=== PATIENT | female | born 1965 | race Caucasian/White ===

== ENCOUNTER → 2017-01-10 17:04 | Outpatient (CLI) | payer OTHER ==
[2015-08-21 07:18] VITALS: BMI 38.3
[~2017-01-10 17:04] MED LIST: GLUCOPHAGE1000 MG PO; LANTUS SOL100 UNIT/1; LISINOPRIL2.5 MG PO
== END | disposition home or self-care (01) ==
LOC: D.MAMMO 09:15
DX: Z12.31 Encounter for screening mammogram for malignant neoplasm of breast (principal)

== ENCOUNTER 2017-07-22 18:45 | Emergency (ER) | payer OTHER ==
[2015-08-21 07:18] VITALS: BMI 38.3
== END 2017-07-22 23:51 | disposition home or self-care (01) ==
LOC: D.ER 18:45
DX: M79.661 Pain in right lower leg (principal); Z86.718 Personal history of other venous thrombosis and embolism; I80.3 Phlebitis and thrombophlebitis of lower extremities, unspecified; I87.2 Venous insufficiency (chronic) (peripheral); E11.9 Type 2 diabetes mellitus without complications; Z79.4 Long term (current) use of insulin

== ENCOUNTER 2018-09-17 18:22 | Emergency (ER) | payer OTHER ==
[~2018-09-17] VITALS: Ht 165.1 cm; Wt 115.5 kg
[2018-09-17 18:32] VITALS: Ht 165.1 cm; Wt 115.5 kg
[2018-09-17] MEDS ORDERED: NORVASC2.5 MG PO (18:35)
[2018-09-17] MEDS ORDERED: ZOFRAN4 MG PO (20:22)
[2018-09-17] MEDS ORDERED: TORADOL10 MG PO (20:22)
[2018-09-17 20:50] VITALS: BP 130/74
== END 2018-09-17 20:52 | disposition home or self-care (01) ==
LOC: D.ER 18:22
DX: E11.649 Type 2 diabetes mellitus with hypoglycemia without coma (principal); Z79.4 Long term (current) use of insulin; S32.038A Other fracture of third lumbar vertebra, initial encounter for closed fracture; V49.9XXA Car occupant (driver) (passenger) injured in unspecified traffic accident, initial encounter; Y93.89 Activity, other specified; Y92.410 Unspecified street and highway as the place of occurrence of the external cause; M54.2 Cervicalgia; I10 Essential (primary) hypertension

== ENCOUNTER → 2018-09-24 13:22 | Outpatient (CLI) | payer OTHER ==
[2018-09-17 18:32] VITALS: BMI 42.3
[~2018-09-24 13:22] MED LIST changes: +NORVASC2.5 MG PO; +TORADOL10 MG PO; +ZOFRAN4 MG PO
== END | disposition home or self-care (01) ==
LOC: D.CT 13:22
DX: R41.3 Other amnesia (principal)

== ENCOUNTER → 2019-01-04 10:26 | Outpatient (CLI) | payer OTHER ==
[2018-09-17 18:32] VITALS: BMI 42.3
== END | disposition home or self-care (01) ==
LOC: D.US 12-24 09:00
DX: I87.8 Other specified disorders of veins (principal); R59.0 Localized enlarged lymph nodes

== ENCOUNTER 2019-02-10 06:33 | Day surgery (SDC) | payer OTHER ==
[~2019-02-10] VITALS: Ht 170.2 cm; Wt 106.6 kg
[~2019-02-10 06:33] MED LIST changes: +CLARITIN 10 MG10 MG PO; +FUROSEMIDE20 MG PO; +K-DUR20 MEQ PO
[2019-02-10 07:20] LABS: CALC OSMOLALITY 284 mosm/kg (275-300); CARBON DIOXIDE 32.5 mmol/L (21.0-32.0); CHLORIDE - SERUM 102 mmol/L (98-107); CREATININE - SERUM 0.8 mg/dL (0.6-1.3); POTASSIUM - SERUM 3.6 mmol/L (3.5-5.1); SODIUM 141 mmol/L (136-145); UREA NITROGEN 15 mg/dL (7-18); eGFR NON AFRICAN AMERICAN 79 mL/min (90-120)
[2019-02-10 07:22] LABS: GLUCOSE 151 mg/dL (74-106)
[2019-02-10 07:51] VITALS: BP 127/80; Ht 170.2 cm; Wt 106.6 kg
[2019-02-10 08:06] LABS: HCG URINE NEGATIVE (NEGATIVE)
[2019-02-10 08:13] LABS: HEMATOCRIT 40.7 % (36.0-48.0); HEMOGLOBIN 13.1 g/dL (12-16); MCH 28.5 pg (26.0-34.0); MCHC 32.2 g/dL (31.0-37.0); MCV 88.5 fL (80.0-100.0); MEAN PLATELET VOLUME 9.6 fL (7.4-10.4); RBC 4.6 10x6/uL (4.00-5.40); RDW 14.4 % (11.5-14.5); WBC 7.3 10x3/uL (4.8-10.8)
--- NOTE | 2019-03-24 17:10 | OP ---
PATIENT NAME: LAURENT BHANDARI MEDICAL RECORD: [id number] :65 LOCATION:D.OPS ADMISSION DATE: SURGEON: RANGEL HARRINGTON MD DATE OF OPERATION: 02/10/2019 PREOPERATIVE DIAGNOSES: 1. Venous stasis disease. 2. Pathologic greater saphenous venous reflux, right. 3. Enlarged right groin lymph nodes. 4. Symptomatic varicose veins, right lower extremity. POSTOPERATIVE DIAGNOSES: 1. Venous stasis disease. 2. Pathologic greater saphenous venous reflux, right. 3. Enlarged right groin lymph nodes. 4. Symptomatic varicose veins, right lower extremity. PROCEDURES: 1. Right groin lymph node biopsies. 2. Avulsion phlebectomy, right lower extremity times 42. 3. Ligation and division of greater saphenous vein. SURGEON: Rangel Harrington MD SENIOR OCCUPATIONAL THERAPIST: None. BLOOD LOSS: Please see the anesthesia sheet. COMPLICATIONS: None. The risks, possible complications, and alternatives to the procedure were explained to the patient. She elects to proceed. My initial plan was to perform a VNUS radiofrequency ablation of right greater saphenous vein. However, the right greater saphenous vein was discontinuous, and for this reason, the VNUS procedure was not performed. OPERATIVE COURSE: The patient was conveyed to the operating room electively on 02/10/2019. General anesthesia was induced by the anesthesia staff. The patient was positioned supine and then in the reverse Trendelenburg position. Under ultrasonographic guidance, I percutaneously accessed the right greater saphenous vein at the ankle. A guidewire passed short distance with difficulty. Under ultrasound, I could see that the greater saphenous vein was discontinuous. I elected to ligate and divide the greater saphenous vein at its origin in the fossa ovalis as it comes off the common femoral vein. I did this because I was going to have to make an incision here anyhow in order to excise 2 pathologically enlarged lymph nodes. Incision was accomplished in the inguinal crease on the right. Sharp dissection was carried down to level of lymph elizabeth tissue, which was then excised with the Harmonic scalpel. There was very little bleeding. The lymph nodes were sent as fresh specimens to the pathologist. Meticulous hemostasis was achieved with the Harmonic scalpel as well as with the electrocautery. OPERATIVE REPORT [id number] LAURENT BHANDARI I then dissected down to the junction of the greater saphenous vein and the common femoral vein. The greater saphenous vein was ligated doubly and divided between ligatures. This should prevent refluxing element in the greater saphenous vein. The skin incision was closed with interrupted intracuticular 3-0 Vicryls and then a running 3-0 Vicryl suture. The varicose veins had been marked preoperatively in the holding area in the presence of a female nurse. The varicose veins on the anterior portion of the right lower extremity were removed utilizing the avulsion phlebectomy technique. Small skin incisions were accomplished. A phlebectomy hook was advanced. I performed avulsion phlebectomies. At no time was there any apparent nervous injury during this procedure. The patient was then positioned prone. The posterior aspect of the right lower extremity was sterilely prepped and draped. Again, avulsion phlebectomies were performed in similar fashion as they were on the front. Small stab incisions were made and then the phlebectomy hook was inserted and avulsion phlebectomies were performed. The patient was then positioned supine again. Sterile dressings were applied including a Coban wrap. The patient was then extubated and conveyed to post-anesthesia care unit, where she was in stable condition. I will plan to remove the Coban wrap in my office in 2-3 days. TRANSINT:[id number] Voice Confirmation ID: [id number] DOCUMENT ID: [id number] RANGEL HARRINGTON MD at 1710 CC: ROSEANNA ACOSTA [id number] DICTATION DATE: 03/18/191714 CURRENCY MACHINE OPERATOR: 03/18/191938 [facility] 02/10/19 [id number] [place] [address]
== END 2019-02-10 17:30 | disposition home or self-care (01) ==
LOC: D.OPS 06:33 → D.PAN 10:30 → D.OPS 17:30
PROVIDERS: Anesthesiology; ATTEND Surgery
DX: I87.8 Other specified disorders of veins (principal); I87.2 Venous insufficiency (chronic) (peripheral); R59.0 Localized enlarged lymph nodes; I83.811 Varicose veins of right lower extremity with pain; D36.0 Benign neoplasm of lymph nodes; Z01.812 Encounter for preprocedural laboratory examination

== ENCOUNTER 2019-02-19 19:00 | Outpatient (CLI) | payer OTHER ==
[2019-02-10 07:51] VITALS: BMI 36.9
== END 2019-02-19 23:59 | disposition home or self-care (01) ==
LOC: D.MAMMO 19:00
PROVIDERS: ATTEND Family Medicine
DX: Z12.31 Encounter for screening mammogram for malignant neoplasm of breast (principal)

== ENCOUNTER → 2019-03-08 15:29 | Outpatient (CLI) | payer OTHER | END | disposition home or self-care (01) | LOC: D.CT 15:29 | DX: R59.1 Generalized enlarged lymph nodes (principal) ==

== ENCOUNTER 2019-07-19 10:25 | Day surgery (SDC) | payer OTHER ==
[2019-07-16 13:54] LABS: ANION GAP 12.8 mmol/L (8-16); CALCIUM 8.8 mg/dL (8.5-10.1); CREATININE - SERUM 0.9 mg/dL (0.6-1.3); POTASSIUM - SERUM 3.8 mmol/L (3.5-5.1)
[2019-07-16 13:59] LABS: HEMATOCRIT 36.3 % (36.0-48.0); HEMOGLOBIN 11.8 g/dL (12-16); MCHC 32.5 g/dL (31.0-37.0); MCV 86.2 fL (80.0-100.0); MEAN PLATELET VOLUME 9.1 fL (7.4-10.4); RBC 4.21 10x6/uL (4.00-5.40); RDW 14.4 % (11.5-14.5)
[~2019-07-19] VITALS: Ht 170.2 cm; Wt 106.1 kg
[2019-07-19 11:17] VITALS: BP 124/53; Ht 170.2 cm; Wt 106.1 kg
[2019-07-19] MEDS ORDERED: HYDROCODON-ACE1 EA10 PO (12:34)
--- NOTE | 2019-07-22 12:03 | OP ---
PATIENT NAME: LAURENT BHANDARI MEDICAL RECORD: [id number] :65 LOCATION:D.OPS ADMISSION DATE: SURGEON: WINTER RUSHING MD DATE OF OPERATION: 07/19/2019 PREOPERATIVE DIAGNOSIS: Carpal tunnel syndrome of the left wrist. POSTOPERATIVE DIAGNOSIS: Carpal tunnel syndrome of the left wrist. PROCEDURE: Left carpal tunnel release. SURGEON: Winter Rushing MD ANESTHESIA: General. INTRAOPERATIVE COMPLICATIONS: None. SUMMARY OF PATHOLOGIC FINDINGS: The patient was indeed found to have a very tight transverse carpal ligament consistent with preoperative diagnosis. OPERATIVE SUMMARY IN DETAIL: After obtaining the appropriate preoperative orthopedic surgery consent as well as anesthetic consultation, evaluation and clearance, the patient was brought to the operating room and placed on the operating table in supine position. After adequate general laryngeal mask airway was administered, tourniquet was placed about the proximal aspect of the left upper extremity. Left upper extremity was then prepped and draped in routine sterile fashion. The arm was elevated and exsanguinated, tourniquet was inflated to 250 mmHg. An incision was made in the midline of the fourth metacarpal ray, taken down the level of the distal aspect of the transverse carpal ligament. This slight incision then led to identification of the median nerve. The freer elevator was then placed over the median nerve for protection throughout the remainder of the case. At this point, the mobiDEOS safety light was then utilized to release the transverse carpal ligament in its entirety to the proximal wrist crease all done under direct visualization. Having completed this, the wound was irrigated and closed and was locally infiltrated with 0.25% Marcaine plain. Sterile dressings were applied. The patient was awakened and taken to the recovery room in stable condition. All final needle and sponge counts were correct. TRANSINT:[id number] Voice Confirmation ID: [id number] DOCUMENT ID: [id number] WINTER RUSHING MD at 1203 CC: [id number] DICTATION DATE: 07/22/19 1106 BAND SAWMILL OPERATOR: 07/22/19 1145 [facility] 07/19/19 [place] [address]
== END 2019-07-19 14:30 | disposition home or self-care (01) ==
LOC: D.OPS 10:25 → D.PAN 14:30 → D.OPS 14:50
PROVIDERS: Anesthesiology; ATTEND Orthopaedic Surgery
DX: G56.02 Carpal tunnel syndrome, left upper limb (principal)

== ENCOUNTER 2020-05-25 08:27 | Day surgery (SDC) | payer OTHER ==
[2020-05-23 15:18] LABS: HEMATOCRIT 39.2 % (36.0-48.0); HEMOGLOBIN 12.5 g/dL (12-16); MCH 28.5 pg (26.0-34.0); MCHC 31.9 g/dL (31.0-37.0); MCV 89.5 fL (80.0-100.0); MEAN PLATELET VOLUME 8.7 fL (7.4-10.4); RBC 4.38 10x6/uL (4.00-5.40); RDW 13.7 % (11.5-14.5); WBC 6.5 10x3/uL (4.8-10.8)
[2020-05-23 15:30] LABS: CALC OSMOLALITY 282 mosm/kg (275-300); CALCIUM 8.5 mg/dL (8.5-10.1); CARBON DIOXIDE 29.7 mmol/L (21.0-32.0); CHLORIDE - SERUM 105 mmol/L (98-107); CREATININE - SERUM 0.7 mg/dL (0.6-1.3); POTASSIUM - SERUM 3.9 mmol/L (3.5-5.1); SODIUM 141 mmol/L (136-145); UREA NITROGEN 15 mg/dL (7-18); eGFR NON AFRICAN AMERICAN > 90 mL/min (90-120)
[2020-05-23 15:32] LABS: GLUCOSE 124 mg/dL (74-106)
[~2020-05-25] VITALS: Ht 170.2 cm; Wt 94.8 kg
--- NOTE | ~2020-05-25 | OP ---
PATIENT NAME: LAURENT BHANDARI MEDICAL RECORD: [id number] :65 LOCATION:D.OPS ADMISSION DATE: SURGEON: WINTER RUSHING MD DATE OF OPERATION: 05/25/2020 PREOPERATIVE DIAGNOSIS: Trigger thumb, left thumb. POSTOPERATIVE DIAGNOSIS: Trigger thumb, left thumb. PROCEDURE: A1 jb release of the trigger thumb. SURGEON: Winter Rushing MD ANESTHESIA: General. INTRAOPERATIVE COMPLICATIONS: None. SUMMARY OF PATHOLOGIC FINDINGS: The patient had a very tight A1 jb and had caused substantial excoriation of the flexor tendons to the thumb, but were not; however, torn entirely. OPERATIVE SUMMARY IN DETAIL: After obtaining the appropriate preoperative orthopedic cultures consent as well as anesthetic consultation, evaluation and clearance, the patient was brought to the operating room and placed on the operating table in supine position. After adequate general laryngeal mask airway was administered, tourniquet was placed on the proximal aspect of left upper extremity. Left upper extremity was prepped and draped in routine sterile fashion. The arm was elevated and exsanguinated. Tourniquet was inflated to 250 mmHg. At this point, the appropriate timeout was taken and agreed upon by all given the patient's unique identifiers. An incision was made at the base of thumb crease. This was taken directly down while holding the digital nerves protected. The A1 jb was identified in its entirety and incised in its entirety. The tendon was inspected. Findings as noted above. Having completed this, the wound was irrigated and closed with 4-0 Prolene in vertical mattress fashion. The area was then locally infiltrated with 0.25% Marcaine and lidocaine mixture. Sterile dressings were applied. Tourniquet was deflated. The patient was awakened and taken to the recovery room in stable condition. All final needle and sponge counts were correct. TRANSINT:[id number] Voice Confirmation ID: [id number] DOCUMENT ID: [id number] WINTER RUSHING MD CC: [id number] DICTATION DATE: 05/25/20 112 ABRADING MACHINE TENDER: 05/25/20 1606 [facility] 05/25/20 [facility] [address] [place] [address]
[~2020-05-25 08:27] MED LIST changes: -GLUCOPHAGE1000 MG PO; +GLUCOPHAGE500 MG PO; +HYDROCODON-ACE1 EA10 PO; +LANTUS INS100 UNITS/ SC; +TRULICITY1.5 MG/0.5 SC
[2020-05-25 09:01] VITALS: BP 120/71; Ht 170.2 cm; Wt 94.8 kg
[2020-05-25] MEDS ORDERED: HYDROCODON-ACE1 EA10 PO (12:02)
--- NOTE | 2020-05-25 12:42 | NUR ---
1215 IV REMOVED AND INSTRUCTIONS GIVEN. RX GIVEN TO PT 1230 COBAND REMOVED AND BECAUSE FINGERS COLD AND DARK. DR RUSHING NOTIFIED AND FINGERS IMPROVED
== END 2020-05-25 13:05 | disposition home or self-care (01) ==
LOC: D.OPS 08:27 → D.PAN 10:15 → D.OPS 13:05 → D.PAN 13:45
PROVIDERS: Anesthesiology; ATTEND Orthopaedic Surgery
DX: M65.312 Trigger thumb, left thumb (principal); E11.40 Type 2 diabetes mellitus with diabetic neuropathy, unspecified; E78.2 Mixed hyperlipidemia; I10 Essential (primary) hypertension; Z79.84 Long term (current) use of oral hypoglycemic drugs; M79.642 Pain in left hand